=== PATIENT | male | born 1955 | race Caucasian/White ===

== ENCOUNTER 2021-08-01 20:22 | Emergency (ER) | payer MEDICARE, OTHER ==
[2021-08-01] MEDS ORDERED: Erythromycin Base 0.5% Ophth Oint 3.5 GM Tube EYEBOTH ONE (20:44)
[2021-08-01] MEDS ORDERED: predniSONE 5 MG Tab PO ONE (20:48)
[2021-08-02] MEDS ORDERED: predniSONE 5 MG Tab PO ONE (20:44)
== END 2021-08-01 21:00 | disposition home or self-care (01) ==
LOC: CC.ED 20:22
DX: H10.9 Unspecified conjunctivitis (principal); R09.81 Nasal congestion
CPT/HCPCS: 99283; A9270; J7512